=== PATIENT | female | born 1985 | race American Indian/Alaskan Native ===

== ENCOUNTER 2024-01-12 02:00 | Emergency (ER) | payer MEDICAID, SELFPAY ==
[2024-01-12 02:07] VITALS: BP 133/87; PULSE 86; RESP 16; TEMP 36.6; O2SAT 100; BMI 25.4
--- NOTE | 2024-01-12 02:13 | PD.EDRME ---
Rapid Medical Screening Exam RME Arrival date/time: 01/12/24 02:00 38-year-old female with no significant past medical history presents emergency department complaining of epigastric pain with nausea that started this morning. Chief Complaint: Abdominal Pain Vital signs: Vital Signs Temperature 97.8 F 01/12/24 02:07 Pulse Rate 86 01/12/24 02:07 Respiratory Rate 16 01/12/24 02:07 Blood Pressure 133/87 H 01/12/24 02:07 Pulse Oximetry (%) 100 01/12/24 02:07 Oxygen Delivery Method Room Air 01/12/24 02:07 Vital signs reviewed by provider: Yes
[2024-01-12] MEDS: ONDANSETRON ODT 4 MG TABRAP PO (02:26)
[2024-01-12] MEDS: MG HYD/AL HYD/SIME (Maalox Reg) SUSP 30 ML UDC PO (02:26)
[2024-01-12] MEDS: LIDOCAINE VISCOUS 2% 15 ML UDC PO (02:27)
[2024-01-12 02:35] LABS: Basophils % (Auto) 0 % (0-2.5); Eosinophils # (Auto) 0.1 Thou/mm3 (0.0-0.5); Eosinophils % (Auto) 2 % (0-10); Hematocrit 38.7 % (36.0-46.0); Hemoglobin 13.3 g/dL (12.0-16.0); Immature Granulocytes % (Auto) 0 % (0-0); Immature Granulocytes Auto 0.02 Thou/mm3 (0.00-0.00); Lymphocytes # (Auto) 2.2 Thou/mm3 (1.0-4.8); Lymphocytes % (Auto) 26 % (10-50); Mean Corpuscular HGB Conc 34.4 g/dl (31.0-37.0); Mean Corpuscular Hemoglobin 31.4 pg (25.0-35.0); Mean Corpuscular Volume 91 fL (80-100); Monocytes # (Auto) 0.5 Thou/mm3 (0.0-0.8); Monocytes % (Auto) 5 % (0-12); Neutrophils # (Auto) 5.6 Thou/mm3 (1.8-7.7); Neutrophils % (Auto) 66 % (37-80); Nucleated Red Blood Cell % 0 /100 WBC (0); Platelet Count 298 Thou/mm3 (140-440); RDW Standard Deviation 39.8 fL (36.4-46.3); Red Blood Count 4.24 Miln/mm3 (4.00-5.20); White Blood Count 8.5 Thou/mm3 (3.6-11.0)
[2024-01-12 02:36] LABS: Collection Type, Urine Clean Catch
[2024-01-12 02:39] LABS: Bilirubin,Urine Negative (Negative); Blood,Urine 2+ (Negative); Clarity,Urine Clear (Clear/Hazy); Color,Urine Lt-Yellow (Lt Yel-Yel); Culture Indicated,Urine Not Indicated; Glucose, Urine Negative (Negative); Ketones,Urine Negative (Negative); Leukocyte Esterase,Urine Positive (Negative); Nitrite,Urine Negative (Negative); PH,Urine 6.5 (5.0-7.0); Protein,Urine Trace (Neg - Trace); RBC,Urine 8 /hpf (0-3); Squamous Epithelial Cell,Urine 5 /hpf (0-5); Urobilinogen,Urine Negative mg/dL (0.0-1.0); WBC,Urine 6 /hpf (0-5)
[2024-01-12 02:53] LABS: Alanine Aminotransferase 42 U/L (10-49); Albumin, Serum 4.3 gm/dL (3.5-5.0); Albumin/Globulin Ratio 1.7 (1.2-2.2); Alkaline Phosphatase 57 U/L (46-116); Anion Gap 5 (7-16); Aspartate Amino Transferase 40 U/L (0-34); BUN/Creatinine Ratio 26 Ratio (12-20); Bilirubin,Total 0.3 mg/dL (0.3-1.2); Blood Urea Nitrogen 21 mg/dL (9-23); Calcium 9.2 mg/dL (8.3-10.6); Calcium (Corrected) 9.2 mg/dL (8.5-10.1); Carbon Dioxide 28.3 mMol/L (20.0-31.0); Chloride 106 mMol/L (98-107); Creatinine (Component) 0.8 mg/dL (0.6-1.3); Estimated Creatinine Clearance 76.6 mL/min (>60); Globulin 2.5 gm/dL (2.3-3.5); Glucose 174 mg/dL (74-106); Lipase 50 U/L (12-53); Osmolality,Calculated 284 (275-295); Potassium 3.4 mMol/L (3.4-5.1); Sodium 139 mMol/L (136-145); Total Protein 6.8 gm/dL (5.7-8.2); eGFR > 60 See Note
--- NOTE | 2024-01-12 02:58 | EDNOTE_ITS ---
ED Abdominal Pain RME/HPI General Chief Complaint: Abdominal Pain Stated complaint: UPPER ABD PAIN Time seen by provider: 01/12/24 02:14 Arrival date/time: 01/12/24 02:00 38-year-old female with no significant past medical history presents emergency department complaining of epigastric pain with nausea that started this morning. Patient denies any fever, chills, vomiting, diarrhea, cough, shortness of breath, dysuria, or any other associated symptom. Limitations: no limitations RME / HPI RME / HPI narrative: 01/12/24 02:00 38-year-old female with no significant past medical history presents emergency department complaining of epigastric pain with nausea that started this morning. Related Data Previous Rx's ?Medication ?Instructions ?Recorded PNV CMB#95/FERROUS FUMARATE/FA 1 tab PO QDAY #60 tabs 01/06/13 ( MULTIVITAMINS TABLET) ibuprofen 600 mg tablet 1 tab PO [id number] PRN ABDOMINAL 01/06/13 CRAMPING #30 tabs omeprazole 20 mg capsule,delayed 20 mg PO QDAY #30 caps 01/12/24 release ondansetron 4 mg disintegrating 4 mg PO Q8H PRN nausea and 01/12/24 tablet vomiting #10 tabs Allergies Allergy/AdvReac Type Severity Reaction Status Date / Time No Known Allergies Allergy Unknown Verified 01/12/24 02:02 Review of Systems Review of Systems Systems Reviewed: All systems reviewed, normal except as documented Constitutional Constitutional: Reports system reviewed and no additional complaints, except as documented, Denies body ache(s), Denies chills and Denies fever(s) Eyes Eyes: Reports system reviewed and no additional complaints, except as documented and Denies change in vision ENT Ears, Nose, Mouth, and Throat: Reports system reviewed and no additional complaints, except as documented, Denies disequilibrium, Denies dizziness, Denies sore throat and Denies vertigo Cardiovascular Cardiovascular: Reports system reviewed and no additional complaints, except as documented, Denies chest pain and Denies dyspnea Respiratory Respiratory: Reports system reviewed and no additional complaints, except as documented, Denies chest congestion, Denies cough and Denies dyspnea Gastrointestinal Gastrointestinal: Reports system reviewed and no additional complaints, except as documented, Reports abdominal pain, Reports nausea and Denies vomiting Musculoskeletal Musculoskeletal: Reports system reviewed and no additional complaints, except as documented, Denies abnormal gait and Denies arthralgias Integumentary/Breasts Skin/Breast: Reports system reviewed and no additional complaints, except as documented, Denies erythema, Denies rash and Denies wounds Neurologic Neurologic: Reports system reviewed and no additional complaints, except as documented, Denies abnormal gait, Denies disequilibrium, Denies dizziness and Denies vertigo Past Medical History Social History SMOKING STATUS: Never smoker ED Exam General Limitations: Present no limitations General appearance: Present alert and in no apparent distress Head Head exam: Present atraumatic Eye Eye exam: Present normal appearance, PERRL and EOMI ENT ENT exam: Present normal exam, normal oropharynx and mucous membranes moist Neck Neck exam: Present normal inspection, full ROM and trachea midline Chest Chest inspection: Present normal inspection and symmetric chest wall rise Respiratory Respiratory exam: Present normal lung sounds bilaterally Cardiovascular Cardiovascular exam: Present regular rate, normal rhythm and normal heart sounds Abdominal Exam Abdominal exam: Present soft and normal bowel sounds; Absent distention, tenderness, rebound, rigidity, Valentine's sign or tenderness at McBurney's Point Extremities Exam Extremities exam: Present normal inspection and full ROM Back Exam Back exam: Present normal inspection and full ROM Neurological Exam Neurological exam: Present alert, oriented X3 and CN II-XII intact Psychiatric Psychiatric exam: Present normal affect and normal mood Skin Skin exam: Present warm, dry, intact and normal color Course Quality Measures none Orders Category Date Time Status CBC Stat Lab 01/12/24 02:20 Completed CMP [Comprehensive Metabolic Panel] Stat Lab 01/12/24 02:20 Completed HCG,Qualitative Serum Stat Lab 01/12/24 02:20 Completed Lipase Stat Lab 01/12/24 02:20 Completed Urinalysis, C/S if Indicated Stat Lab 01/12/24 02:20 Completed Lidocaine 2% Viscous [Xylocaine 2% Viscous] Med 01/12/24 02:12 Discontinued 15 ml PO X1 ONE Ondansetron Odt [Zofran Odt] Med 01/12/24 02:12 Discontinued 4 mg PO X1 ONE mg Hyd/Al Hyd/Mervat Susp [Maalox Susp] Med 01/12/24 02:12 Discontinued 30 ml PO X1 ONE Vital Signs Vital signs: Vital Signs Temperature 97.8 F 01/12/24 02:07 Pulse Rate 86 01/12/24 02:07 Respiratory Rate 16 01/12/24 02:07 Blood Pressure 133/87 H 01/12/24 02:07 Pulse Oximetry (%) 100 01/12/24 02:07 Oxygen Delivery Method Room Air 01/12/24 02:07 100% room air within normal limits Abdominal Pain MDM MDM Narrative MDM Narrative:: 38-year-old female with no significant past medical history presents emergency department complaining of epigastric pain with nausea that started this morning. Patient denies any fever, chills, vomiting, diarrhea, cough, shortness of breath, dysuria, or any other associated symptom. Patient CBC was unremarkable for any leukocytosis. CMP was unremarkable for any transaminitis or gross electrolyte abnormalities. Urinalysis negative for any signs of acute infection. Patient appears nontoxic and hemodynamically stable. Abdomen is soft and nontender. Patient reported improvement in symptoms with GI cocktail. Patient discharged home and instructed to follow-up with primary care provider in 24 to 48 hours and request H. pylori testing or referral to GI specialist if symptoms persist. Patient data External records reviewed:: [facility] previous records Clinical information provided by:: patient Social determinants that could affect healthcare access:: none Patient has the following chronic illnesses:: N/A How is presenting disease/condition affected by chronic disease/condition?: no chronic disease Evaluation data The following diagnostics were reviewed and interpreted by me:: lab results Lab and/or radiology exams considered but not ordered:: Ordered Interpretation Summary: Interpreted by me Medications / Prescriptions Medications or Prescriptions considered but not ordered:: Ordered Medication administrations:: Medication Administration History Discontinued Medications Al Hydrox/Mg Hydrox/Simethicone (Mg Hyd/Al Hyd/Mervat (Maalox Reg) Susp 30 Ml Udc) 30 ml PO X1 ONE Stop: 01/12/24 02:13 Last Admin: 01/12/24 02:26 Dose: 30 ml Documented By: CVL Lidocaine HCl (Lidocaine Viscous 2% 15 Ml Udc) 15 ml PO X1 ONE Stop: 01/12/24 02:13 Last Admin: 01/12/24 02:27 Dose: 15 ml Documented By: CVL Ondansetron HCl (Ondansetron Odt 4 Mg Tabrap) 4 mg PO X1 ONE; Protocol Stop: 01/12/24 02:13 Last Admin: 01/12/24 02:26 Dose: 4 mg Documented By: CVL Given Consultations Consultation(s) initiated? (list below): No Diagnosis Differential diagnosis abdominal pain: abdominal pain, constipation, gastroenteritis and other (Gastritis, H. pylori) Most likely diagnosis given after review of the tests above:: Abdominal pain Admission Indicated Admission indicated?: not indicated Admission Request Was there a request for admission?: No Disposition Plan Disposition Plan: Discharge Discharge Attestation Discharge Attestation: The patient and all family members were given an opportunity to ask questions and understood the discharge instructions. Discharge instructions specifically effects, indications for sooner follow up or return to the emergency department, and the expected course of current diagnosis. Patient condition: Stable Discharge Plan Plan Patient Disposition: HOME (Self Care) Disposition Comment: Stable Prescriptions/Referrals Prescriptions/Med Rec: New ondansetron 4 mg tablet,disintegrating 4 mg PO Q8H PRN (Reason: nausea and vomiting) Qty: 10 0RF omeprazole 20 mg capsule,delayed release(DR/EC) 20 mg PO QDAY Qty: 30 0RF No Action ibuprofen 600 MG tablet 1 tab PO [id number] PRN (Reason: ABDOMINAL CRAMPING) Qty: 30 0RF PNV CMB#95/FERROUS FUMARATE/FA ( MULTIVITAMINS TABLET) 1 EACH tablet 1 tab PO QDAY Qty: 60 1RF Problem List Clinical Impression: Abdominal pain Patient/Caregiver Discharge Instructions Discharge Activity: activity as tolerated Education Materials: Abdominal Pain, ED Abdominal Pain Unkn Cause Fem Additional Instructions: Take medication as prescribed. Follow-up with primary care provider in 24 to 48 hours and request H. pylori testing or referral to GI specialist if symptoms persist. Return to emergency department for any worsening symptoms or as needed. Print Language: Nauruan Stand Alone Forms: Swathi Award Info., Work/School Release, Patient Portal Info Letter PA/CHIEF LOCK OPERATOR Supervising Physician PA/CHIEF LOCK OPERATOR Supervising Physician: Dr. Oneill
[2024-01-12 03:10] LABS: HCG,Qualitative Serum Negative
== END 2024-01-12 03:41 | disposition home or self-care (01) ==
LOC: SERX 03:25
PROVIDERS: Emergency Provider Emergency Medicine
DX: R10.13 Epigastric pain (principal)
CPT/HCPCS: 36415; 80053; 81001; 83690; 84703; 85025; 99283; J3490; Q0162; A9270